=== PATIENT | female | born 1940 | race Hispanic/Latino ===

== ENCOUNTER 2019-08-11 15:30 | Outpatient (CLI) | payer MEDICARE, MEDICAID ==
--- NOTE | 2019-08-11 16:09 | ULT ---
Bilateral renal ultrasound CLINICAL INDICATION: Chronic kidney disease. COMPARISON: None FINDINGS: Right kidney: There is borderline renal cortical thinning. No renal mass, renal calculus or hydroneph rosis is seen on the right.The right kidney measures 9.1 cm x 4.2 cm. Left kidney: There is no evidence of renal cortical thinning on the left. Small anechoic structure me asuring 1.1 cm is seen in the medial aspect midportion left kidney which demonstrates sonographic characteristics most compatible with a small cyst. No hydronephrosis or renal calculus is appreciated .The left kidney measures 9 cm x 5.3 cm. Urinary bladder: Incompletely distended with urinary bladder volume of 48 mL. However, urinary bladde r has a grossly normal appearance for the degree of distention. Incidental imaging of the gallbladder while imaging of the right kidney demonstrates echogenic foci w ithin the gallbladder lumen with posterior shadowing most compatible with gallbladder calculi. IMPRESSION: 1. Borderline renal cortical thinning involving the right kidney. 2. Small left renal cyst. 3. No evidence of hydronephrosis. 4. Cholelithiasis.
== END 2019-08-11 15:31 | disposition home or self-care (01) ==
LOC: BICULT 15:30
PROVIDERS: ATTEND Internal Medicine Nephrology
DX: N18.3 Chronic kidney disease, stage 3 (moderate) (principal); N28.1 Cyst of kidney, acquired; K80.20 Calculus of gallbladder without cholecystitis without obstruction
CPT/HCPCS: 76770

== ENCOUNTER 2020-11-22 07:08 | Outpatient (CLI) | payer MEDICARE, MEDICAID | END 2020-11-22 07:09 | disposition home or self-care (01) | LOC: BICULT 07:08 | PROVIDERS: ATTEND Hospitalist | DX: E11.65 Type 2 diabetes mellitus with hyperglycemia (principal); R22.1 Localized swelling, mass and lump, neck; R01.1 Cardiac murmur, unspecified; N28.89 Other specified disorders of kidney and ureter | CPT/HCPCS: 76770; 93880; 93975 ==

== ENCOUNTER 2021-04-29 12:54 | Outpatient (CLI) | payer MEDICARE, MEDICAID ==
[~2021-04-29 12:54] MED LIST: Iopamidol-370 76% 500 ML 1 ML ONE
== END 2021-04-29 12:55 | disposition home or self-care (01) ==
LOC: BICCT 12:54
PROVIDERS: ATTEND Thoracic Surgery (Cardiothoracic Vascular Surgery)
DX: R22.1 Localized swelling, mass and lump, neck (principal); E07.89 Other specified disorders of thyroid; K11.8 Other diseases of salivary glands
CPT/HCPCS: 70498; 82565; Q9967

== ENCOUNTER 2021-06-25 13:52 | Outpatient (CLI) | payer MEDICARE, MEDICAID | END 2021-06-25 13:53 | disposition home or self-care (01) | LOC: BICULT 13:52 | PROVIDERS: ATTEND Specialist | DX: E04.1 Nontoxic single thyroid nodule (principal) | CPT/HCPCS: 76536 ==

== ENCOUNTER 2021-08-13 12:41 | Day surgery (SDC) | payer MEDICARE, MEDICAID ==
[2021-08-13] MEDS ORDERED: Sodium Bicarbonate 2.5 MEQ/5 ML VIAL ONE (12:48)
[2021-08-13] MEDS ORDERED: Lidocaine 1% PF 5 ML VIAL ONE (12:48)
[2021-08-13 14:06] VITALS: BP 163/76; TEMP 98.4
[2021-08-13] MEDS ORDERED: FLU VACC QS2021-22(65YR UP)/PF 240 MCG/0.7 ML SYRINGE IM ONE (14:30)
== END 2021-08-13 14:20 | disposition home or self-care (01) ==
LOC: ULT 12:41
PROVIDERS: ATTEND Specialist
PROC: 0G9H3ZX Drainage of Right Thyroid Gland Lobe, Percutaneous Approach, Diagnostic (ICD-10-PCS; principal; 2021-08-13)
DX: E04.1 Nontoxic single thyroid nodule (principal); Z23 Encounter for immunization; Z79.82 Long term (current) use of aspirin; Z79.84 Long term (current) use of oral hypoglycemic drugs; Z79.899 Other long term (current) drug therapy; Z88.0 Allergy status to penicillin
CPT/HCPCS: 10005; 90732; G0009; 88173; 90471; 90662; G0008

== ENCOUNTER 2023-05-11 04:44 | Inpatient (IN) | payer OTHER, MEDICAID ==
[2023-05-11 05:24] LABS: Actual Bicarbonate (HCO3v) 22.3 mEq/L (22-28); Base Excess -3.5 mEq/L (-2.0 to +3.0); Calcium, Ionized (venous) 1.07 mmol/L (1.16-1.32); Chloride (VBG) 104 mmol/L (98-106); Hematocrit-VBG 32 % (36.0-47.0); Hemoglobin (Hb) 10.9 g/dL (11.7-16.1); Potassium (VBG) 4.82 mmol/L (3.70-5.30); Sodium 139 mmol/L (133-146); pH (venous) 7.332 (7.32-7.43)
[2023-05-11 05:28] LABS: #Eosinphils 0.2 thou/uL (0.0-0.7); #Monocytes 0.7 thou/uL (0.11-0.59); #Neutrophils 6.4 thou/uL (1.40-6.50); %Basophils 0.3 % (0.0-1.0); %Monocytes 7.5 % (0.0-10.0); %Neutrophils 65.3 % (42.0-75.0); Hematocrit 32.2 % (36.0-47.0); Hemoglobin 9.7 g/dL (12.0-16.0); Mean Corpuscular HGB CONC 30.1 g/dL (32.0-36.0); Mean Corpuscular Hemoglobin 22.5 pg (27.0-31.0); Mean Corpuscular Volume 74.5 fl (78.0-98.0); Mean Platelet Volume 10.5 fL (7.4-10.4); Platelet Count 247 10x3/uL (130-400); RBC Distribution Width 19.3 % (11.5-14.5); Red Blood Cell (RBC) Count 4.32 mill/uL (4.20-5.40); White Blood Cell (WBC) Count 9.8 10x3/uL (4.8-10.8)
[2023-05-11] MEDS ORDERED: Furosemide 40 MG/4 ML VIAL ONE (05:32)
[2023-05-11 05:44] LABS: ALT (SGPT) 11 U/L (8-55); AST (SGOT) 13 U/L (5-34); Albumin 4.2 g/dL (3.4-4.8); Alkaline Phosphatase 175 U/L (40-110); Anion Gap 13 mmol/L (10-20); BUN (Urea Nitrogen) 32 mg/dL (9.8-20.1); Bilirubin, Total 0.2 mg/dL (0.2-1.2); Calc. Creatinine Clearance 0 mL/min (70-130); Calcium 8.7 mg/dL (7.8-10.44); Carbon Dioxide 24 mmol/L (23-31); Chloride 105 mmol/L (98-107); Estimated GFR 44; Globulin 3.6 g/dL (2.4-3.5); Glucose 232 mg/dL (83-110); Magnesium 1.7 mg/dL (1.6-2.6); Potassium 4.6 mmol/L (3.5-5.1); Protein, Total 7.8 g/dL (5.8-8.1); Sodium 137 mmol/L (136-145)
[2023-05-11] MEDS ORDERED: Nitroglycerin 2% Ointment 1 INCH/1 GM Packet ONE (05:49)
[2023-05-11 05:58] LABS: Troponin I Less than 0.010 ng/mL (< 0.028)
[2023-05-11] MEDS ORDERED: Acetaminophen 325 MG TAB PO PRN (07:00)
[2023-05-11] MEDS ORDERED: Ondansetron ODT 4 MG TAB SL PRN (07:00)
[2023-05-11] MEDS ORDERED: Ondansetron PF 4 MG/2 ML Vial IVP PRN (07:00)
[2023-05-11] MEDS ORDERED: Mag-Al 1200 mg/1200 mg/30 ML UDCUP ONE (07:25)
[2023-05-11] MEDS ORDERED: Benzonatate 100 MG CAP PO PRN (07:40)
[2023-05-11] MEDS ORDERED: Dextrose 5% in Water 1,000 ML IV PRN (07:45)
[2023-05-11] MEDS ORDERED: HumaLOG 300 UNITS/3 ML VIAL SC PRN (07:45)
[2023-05-11] MEDS ORDERED: Dextrose 50% Abboject 50 ML SYRINGE SLOW IVP PRN (07:45)
[2023-05-11] MEDS ORDERED: Glucagon 1 MG/ML KIT IM PRN (07:45)
[2023-05-11 08:00] VITALS: BMI 32.0
[2023-05-11 08:03] LABS: Hemoglobin A1c 9.4 % (4.0-6.0)
[2023-05-11 08:12] LABS: Bacteria/HPF Rare-Few HPF (None Seen); Bilirubin Negative (Negative); Blood, Urine 1+ (Negative); CAUTI Indications for Culture Dysuria,urgency,freq; Clarity Clear (Clear); Glucose, Urine (Dipstick) Greater than 1000 mg/dL (Negative); Ketone, Urine Negative (Negative); Leukocyte 75 Leu/uL (Negative); Nitrite Negative (Negative); Protein, Urine (Dipstick) Negative (Neg-Trace); RBC/HPF 0-3 HPF (0-3); Specific Gravity, Urine 1.008 (1.002-1.036); Squamous Epithelial None Seen HPF (0-3); Urobilinogen Normal mg/dL (Less than 2); WBC/HPF 0-3 HPF (0-3)
[2023-05-11 08:14] LABS: Urine Culture Reflex No No
[2023-05-11 08:28] LABS: Lactic Acid 3.3 mmol/L (0.5-2.2)
[2023-05-11] MEDS ORDERED: Alogliptin 6.25 MG TAB PO SCH (08:30)
[2023-05-11] MEDS ORDERED: metFORMIN 500 MG TAB PO SCH ×2 (08:30→17:00)
[2023-05-11] MEDS ORDERED: glipiZIDE XL 10 mg ER.TAB PO SCH ×2 (08:30→16:30)
[2023-05-11 08:36] LABS: Troponin I Less than 0.010 ng/mL (< 0.028)
[2023-05-11] MEDS ORDERED: Metoprolol Tartrate 25 MG TAB ONE (08:43)
[2023-05-11] MEDS ORDERED: Amlodipine 5 MG TAB ONE (08:43)
[2023-05-11] MEDS ORDERED: Aspirin Chewable 81 MG TAB ONE (08:44)
[2023-05-11] MEDS ORDERED: Pioglitazone HCl 45 MG TAB PO SCH (09:00)
[2023-05-11] MEDS ORDERED: Aspirin 81 mg Enteric Coated Tablet PO SCH (09:00)
[2023-05-11] MEDS ORDERED: Amlodipine 5 MG TAB PO SCH (09:00)
[2023-05-11] MEDS ORDERED: Empagliflozin 25 MG TAB PO SCH (09:00)
[2023-05-11] MEDS ORDERED: Metoprolol Tartrate 25 MG TAB PO SCH (09:00)
[2023-05-11 14:36] LABS: Troponin I Less than 0.010 ng/mL (< 0.028)
[2023-05-11 16:01] VITALS: BP 133/83; TEMP 98.6
[2023-05-12] MEDS ORDERED: Levothyroxine Sodium 100 MCG TAB PO SCH (06:00)
[2023-05-12] MEDS ORDERED: Alogliptin 6.25 MG TAB PO SCH (07:30)
[2023-05-12] MEDS ORDERED: Furosemide 20 MG/2 ML VIAL SLOW IVP SCH (09:00)
== END 2023-05-11 16:37 | disposition home or self-care (01) | DRG 291 ==
LOC: ERS 04:44 → ERHOLD 06:46
PROVIDERS: ADMIT Family Medicine; ATTEND Family Medicine
DX: I11.0 Hypertensive heart disease with heart failure (principal); I50.31 Acute diastolic (congestive) heart failure; E03.9 Hypothyroidism, unspecified; E11.65 Type 2 diabetes mellitus with hyperglycemia; E78.5 Hyperlipidemia, unspecified; M19.90 Unspecified osteoarthritis, unspecified site; Z88.0 Allergy status to penicillin; Z79.899 Other long term (current) drug therapy; Z79.82 Long term (current) use of aspirin; Z79.84 Long term (current) use of oral hypoglycemic drugs; Z98.890 Other specified postprocedural states; Z79.890 Hormone replacement therapy
CPT/HCPCS: 36415; 71045; 80053; 81001; 82010; 82805; 83036; 83605; 83735; 83880; 84443; 84484; 85025; 93005; 96374; J1650; J1940

== ENCOUNTER 2023-06-05 05:44 | Inpatient (IN) | payer OTHER ==
[2023-06-05 06:12] LABS: Hematocrit 34.4 % (36.0-47.0); Hemoglobin 10.6 g/dL (12.0-16.0); Mean Corpuscular HGB CONC 30.8 g/dL (32.0-36.0); Mean Corpuscular Hemoglobin 23.3 pg (27.0-31.0); Mean Corpuscular Volume 75.6 fl (78.0-98.0); Mean Platelet Volume 10.3 fL (7.4-10.4); Platelet Count 270 10x3/uL (130-400); RBC Distribution Width 23.7 % (11.5-14.5); Red Blood Cell (RBC) Count 4.55 mill/uL (4.20-5.40)
[2023-06-05 06:15] LABS: Delete Auto Diff?? YES; Manual Diff?? YES
[2023-06-05] MEDS ORDERED: Cefepime 2 GM VIAL ONE (06:17)
[2023-06-05 06:26] LABS: ALT (SGPT) 11 U/L (8-55); AST (SGOT) 12 U/L (5-34); Albumin 3.5 g/dL (3.4-4.8); Alkaline Phosphatase 125 U/L (40-110); Anion Gap 20 mmol/L (10-20); BUN (Urea Nitrogen) 55 mg/dL (9.8-20.1); Bilirubin, Total 0.5 mg/dL (0.2-1.2); Calc. Creatinine Clearance 0 mL/min (70-130); Calcium 8.4 mg/dL (7.8-10.44); Carbon Dioxide 17 mmol/L (23-31); Chloride 99 mmol/L (98-107); Estimated GFR 18; Globulin 4.1 g/dL (2.4-3.5); Lipase 56 U/L (8-78); Potassium 4.8 mmol/L (3.5-5.1); Protein, Total 7.6 g/dL (5.8-8.1); Sodium 131 mmol/L (136-145)
[2023-06-05 06:29] LABS: Glucose 702 mg/dL (83-110); Troponin I Less than 0.010 ng/mL (< 0.028)
[2023-06-05 06:40] LABS: Anisocytosis MODERATE=16-30 cells HPF (0-5); Band 39 % (5-11); CellaVision Operator ID lab.sh2; Hypochromia SLIGHT = 6-15 cells HPF (0-5); Lymphocytes 3 % (21-51); Metamyelocyte 2 % (0-0); Microcytosis SLIGHT = 6-15 cells HPF (0-5); Monocytes 2 % (0-10); Neutrophil 55 % (42-75); Ovalocytes SLIGHT = 2-5 cells HPF (0-1); Platelet Adequacy Comment Platelets Normal; Polychromasia MODERATE = 3-4 cells HPF (0-2); Smudge Cells 2.8 %; Tear Drops SLIGHT = 2-5 cells HPF (0-1); Total Cell Count 108
[2023-06-05 06:52] LABS: Bacteria/HPF 4+ HPF (None Seen); Bilirubin Negative (Negative); Blood, Urine 3+ (Negative); CAUTI Indications for Culture Fever or rigors; Clarity Extra Turbid (Clear); Glucose, Urine (Dipstick) Greater than 1000 mg/dL (Negative); Ketone, Urine Negative (Negative); Leukocyte 500 Leu/uL (Negative); Nitrite Negative (Negative); Protein, Urine (Dipstick) 10 mg/dL (Neg-Trace); Specific Gravity, Urine 1.019 (1.002-1.036); Urine Culture Reflex Yes Yes; Urobilinogen Normal mg/dL (Less than 2); WBC/HPF 21-50 HPF (0-3)
[2023-06-05] MEDS ORDERED: Sodium Chloride 0.9% 100 ML ONE (07:05)
[2023-06-05] MEDS ORDERED: Vancomycin 1 GM/200 ML (FROZEN) BAG ONE (07:48)
[2023-06-05 07:55] LABS: Actual Bicarbonate (HCO3v) 17.3 mEq/L (22-28); Base Excess -9.2 mEq/L (-2.0 to +3.0); Calcium, Ionized (venous) 1.04 mmol/L (1.16-1.32); Chloride (VBG) 102 mmol/L (98-106); Hematocrit-VBG 35 % (36.0-47.0); Potassium (VBG) 5.15 mmol/L (3.70-5.30); Sodium 137 mmol/L (133-146); pH (venous) 7.255 (7.32-7.43)
[2023-06-05] MEDS ORDERED: Insulin Glargine 30 UNITS/0.3 ML VIAL SC SCH (08:15)
[2023-06-05] MEDS ORDERED: SODIUM CHLORIDE 0.9% IVPB SCH (08:30)
[2023-06-05] MEDS ORDERED: HUMULIN R IVPB SCH (08:30)
[2023-06-05] MEDS ORDERED: Glucagon 1 MG/ML KIT IM PRN (08:39)
[2023-06-05] MEDS ORDERED: Dextrose 50% Abboject 50 ML SYRINGE SLOW IVP PRN (08:39)
[2023-06-05] MEDS ORDERED: Dextrose 5% in Water 1,000 ML IV PRN (08:39)
[2023-06-05] MEDS ORDERED: Insulin Regular 300 UNITS/3 ML VIAL IVP SCH ×3 (09:00→15:37)
[2023-06-05 09:03] LABS: Lactic Acid 3.3 mmol/L (0.5-2.2)
[2023-06-05] MEDS ORDERED: Sodium Chloride 0.9% 500 ML IV SCH ×2 (10:00→14:00)
[2023-06-05] MEDS ORDERED: FLU VACC QS2023(65UP)/MF59C/PF 60 MCG/0.5 ML SYRINGE IM ONE (10:00)
[2023-06-05 10:09] VITALS: BMI 30.9
[2023-06-05 11:00] LABS: ALT (SGPT) 13 U/L (8-55); AST (SGOT) 15 U/L (5-34); Albumin 3.1 g/dL (3.4-4.8); Alkaline Phosphatase 102 U/L (40-110); Anion Gap 19 mmol/L (10-20); BUN (Urea Nitrogen) 50 mg/dL (9.8-20.1); Bilirubin, Total 0.4 mg/dL (0.2-1.2); Calc. Creatinine Clearance 22 mL/min (70-130); Calcium 8.1 mg/dL (7.8-10.44); Carbon Dioxide 16 mmol/L (23-31); Chloride 104 mmol/L (98-107); Estimated GFR 21; Globulin 3.9 g/dL (2.4-3.5); Potassium 4.1 mmol/L (3.5-5.1); Sodium 135 mmol/L (136-145)
[2023-06-05 11:08] LABS: Glucose 540 mg/dL (83-110)
[2023-06-05] MEDS ORDERED: Vancomycin HCl 250 MG in Sodium Chloride 0.9% 100 ML IV SCH (15:45)
[2023-06-05] MEDS ORDERED: Vancomycin Dose by Levels Sliding Scale (Wt 71-99) FS SCH (15:45)
[2023-06-05] MEDS ORDERED: HumaLOG 300 UNITS/3 ML VIAL SC PRN (16:15)
[2023-06-05 16:53] LABS: ALT (SGPT) 13 U/L (8-55); AST (SGOT) 21 U/L (5-34); Albumin 2.9 g/dL (3.4-4.8); Alkaline Phosphatase 82 U/L (40-110); Anion Gap 16 mmol/L (10-20); BUN (Urea Nitrogen) 45 mg/dL (9.8-20.1); Bilirubin, Total 0.4 mg/dL (0.2-1.2); Calc. Creatinine Clearance 26 mL/min (70-130); Calcium 7.9 mg/dL (7.8-10.44); Carbon Dioxide 15 mmol/L (23-31); Chloride 111 mmol/L (98-107); Estimated GFR 25; Globulin 3.4 g/dL (2.4-3.5); Glucose 324 mg/dL (83-110); Potassium 3.6 mmol/L (3.5-5.1); Protein, Total 6.3 g/dL (5.8-8.1); Sodium 138 mmol/L (136-145)
[2023-06-05 18:18] LABS: Lactic Acid 1.8 mmol/L (0.5-2.2)
[2023-06-05] MEDS ORDERED: Acetaminophen 325 MG TAB PO SCH (19:45)
[2023-06-05] MEDS ORDERED: Albumin 25% 25 GM/100 ML BOT IVPB SCH ×2 (20:00→21:15)
[2023-06-05] MEDS: Lactated Ringer's 1,000 ML IV SCH (20:05)
[2023-06-05] MEDS ORDERED: Vancomycin 1 GM in Sodium Chloride 0.9% 250 ML 250 ML IVPB SCH (21:00)
[2023-06-05 21:15] LABS: Anion Gap 15 mmol/L (10-20); BUN (Urea Nitrogen) 45 mg/dL (9.8-20.1); Calc. Creatinine Clearance 28 mL/min (70-130); Calcium 7.9 mg/dL (7.8-10.44); Carbon Dioxide 17 mmol/L (23-31); Chloride 111 mmol/L (98-107); Estimated GFR 28; Glucose 266 mg/dL (83-110); Magnesium 1.4 mg/dL (1.6-2.6); Potassium 3.5 mmol/L (3.5-5.1); Sodium 139 mmol/L (136-145)
[2023-06-05] MEDS ORDERED: Lactated Ringer's 500 ML IV SCH (21:30)
[2023-06-05] MEDS ORDERED: Midodrine HCl 5 MG TAB PO SCH (22:30)
[2023-06-05 22:58] LABS: Legionella Urinary Ag Negative (Negative); Strep pneumo Urine Ag POSITIVE (NEGATIVE)
[2023-06-06] MEDS ORDERED: Magnesium 2 GM/50 ML(in water) 2 GM in Premix 1 BAG IVPB SCH (00:30)
[2023-06-06] MEDS: Albumin 25% 25 GM/100 ML BOT IVPB SCH ×3 (01:44→15:54)
[2023-06-06 04:14] LABS: Hemoglobin 8.7 g/dL (12.0-16.0); Mean Corpuscular Hemoglobin 23.3 pg (27.0-31.0); Mean Corpuscular Volume 77.5 fl (78.0-98.0); Mean Platelet Volume 11.3 fL (7.4-10.4); Platelet Count 183 10x3/uL (130-400); RBC Distribution Width 24.1 % (11.5-14.5); Red Blood Cell (RBC) Count 3.74 mill/uL (4.20-5.40); White Blood Cell (WBC) Count 8.8 10x3/uL (4.8-10.8)
[2023-06-06 04:16] LABS: Delete Auto Diff?? YES; Manual Diff?? YES
[2023-06-06 04:57] LABS: AST (SGOT) 26 U/L (5-34); Albumin 3.3 g/dL (3.4-4.8); Alkaline Phosphatase 68 U/L (40-110); Anion Gap 15 mmol/L (10-20); BUN (Urea Nitrogen) 41 mg/dL (9.8-20.1); Bilirubin, Total 0.4 mg/dL (0.2-1.2); Calc. Creatinine Clearance 29 mL/min (70-130); Calcium 8.2 mg/dL (7.8-10.44); Carbon Dioxide 17 mmol/L (23-31); Chloride 112 mmol/L (98-107); Estimated GFR 29; Globulin 2.9 g/dL (2.4-3.5); Glucose 242 mg/dL (83-110); Potassium 3.2 mmol/L (3.5-5.1); Protein, Total 6.2 g/dL (5.8-8.1); Sodium 141 mmol/L (136-145)
[2023-06-06 04:58] LABS: ALT (SGPT) 13 U/L (8-55)
[2023-06-06 05:06] LABS: Band 63 % (5-11); CellaVision Operator ID LAB.CLH1; Elliptocytes SLIGHT = 2-5 cells HPF (0-1); Hypochromia SLIGHT = 6-15 cells HPF (0-5); Lymphocytes 2 % (21-51); Metamyelocyte 8 % (0-0); Microcytosis SLIGHT = 6-15 cells HPF (0-5); Monocytes 6 % (0-10); Neutrophil 20 % (42-75); Platelet Adequacy Comment Platelets Normal; Polychromasia MODERATE = 3-4 cells HPF (0-2); Total Cell Count 109
[2023-06-06] MEDS ORDERED: Electrolyte Replacement Protocol 1 EACH FS PRN (05:22)
[2023-06-06 05:35] LABS: Magnesium 2.1 mg/dL (1.6-2.6)
[2023-06-06] MEDS ORDERED: Potassium Chloride 20 MEQ TAB PO SCH (05:45)
[2023-06-06] MEDS: Cefepime 1 GM in Sodium Chloride 0.9% 100 ML IVPB SCH (09:17)
[2023-06-06] MEDS: Lactated Ringer's 1,000 ML IV SCH (09:19)
[2023-06-06] MEDS ORDERED: Insulin Glargine 30 UNITS/0.3 ML VIAL SC SCH (09:33)
[2023-06-06] MEDS ORDERED: Loperamide HCl 2 MG CAP PO SCH (21:00)
[2023-06-06] MEDS: Acetaminophen 325 MG TAB PO PRN (21:28)
[2023-06-06 21:38] LABS: Campy jejuni + coli by PCR Negative (Negative); STEC Shiga Toxin 1+2 Negative (Negative); Salmonella spp. by PCR POSITIVE (Negative); Shigella spp + EIEC by PCR Negative (Negative)
[2023-06-07] MEDS: Lactated Ringer's 1,000 ML IV SCH ×3 (04:17→21:15)
[2023-06-07 04:50] LABS: Hematocrit 27.4 % (36.0-47.0); Hemoglobin 8.3 g/dL (12.0-16.0); Mean Corpuscular HGB CONC 30.3 g/dL (32.0-36.0); Mean Corpuscular Hemoglobin 23.4 pg (27.0-31.0); Mean Corpuscular Volume 77.2 fl (78.0-98.0); Platelet Count 110 10x3/uL (130-400); RBC Distribution Width 25.2 % (11.5-14.5); Red Blood Cell (RBC) Count 3.55 mill/uL (4.20-5.40); White Blood Cell (WBC) Count 8.3 10x3/uL (4.8-10.8)
[2023-06-07 04:56] LABS: Delete Auto Diff?? YES; Manual Diff?? YES
[2023-06-07 05:15] LABS: ALT (SGPT) 17 U/L (8-55); AST (SGOT) 29 U/L (5-34); Albumin 3.4 g/dL (3.4-4.8); Alkaline Phosphatase 58 U/L (40-110); Anion Gap 14 mmol/L (10-20); BUN (Urea Nitrogen) 30 mg/dL (9.8-20.1); Bilirubin, Total 0.4 mg/dL (0.2-1.2); Calc. Creatinine Clearance 41 mL/min (70-130); Calcium 8.4 mg/dL (7.8-10.44); Carbon Dioxide 18 mmol/L (23-31); Chloride 113 mmol/L (98-107); Estimated GFR 44; Globulin 2.8 g/dL (2.4-3.5); Glucose 185 mg/dL (83-110); Potassium 3.1 mmol/L (3.5-5.1); Protein, Total 6.2 g/dL (5.8-8.1); Sodium 142 mmol/L (136-145)
[2023-06-07 05:50] LABS: Anisocytosis MODERATE=16-30 cells HPF (0-5); Band 27 % (5-11); Burr Cells SLIGHT = 2-5 cells HPF (0-1); CellaVision Operator ID lab.sh2; Hypochromia SLIGHT = 6-15 cells HPF (0-5); Large Platelets 4.7 % (0-5); Lymphocytes 18 % (21-51); Macrocytosis SLIGHT = 6-15 cells HPF (0-5); Microcytosis SLIGHT = 6-15 cells HPF (0-5); Monocytes 1 % (0-10); Neutrophil 53 % (42-75); Ovalocytes SLIGHT = 2-5 cells HPF (0-1); Platelet Adequacy Comment Platelets Decreased; Poikilocytosis SLIGHT = 6-15 cells HPF (0-5); Polychromasia SLIGHT = 2-3 cells HPF (0-2); Target Cells SLIGHT = 2-5 cells HPF (0-1); Total Cell Count 106; Vacuoles MODERATE
[2023-06-07] MEDS ORDERED: Calcium Carbonate 500 MG ChewTAB PO PRN (06:55)
[2023-06-07] MEDS ORDERED: Ondansetron ORAL SOLN. 4 MG/5 ML UDCUP PO PRN (06:58)
[2023-06-07] MEDS ORDERED: Potassium Chloride 20 MEQ TAB PO SCH (08:00)
[2023-06-07] MEDS: Cefepime 1 GM in Sodium Chloride 0.9% 100 ML IVPB SCH (08:04)
[2023-06-07] MEDS: Famotidine 20 MG TAB PO SCH ×2 (08:04→21:14)
[2023-06-07] MEDS: Ondansetron ODT 4 MG TAB PO PRN ×3 (08:06→21:13)
[2023-06-07] MEDS: Insulin Glargine 30 UNITS/0.3 ML VIAL SC SCH (08:10)
[2023-06-07] MEDS ORDERED: Insulin Glargine 30 UNITS/0.3 ML VIAL SC SCH (09:00)
[2023-06-07] MEDS: Loperamide HCl 2 MG CAP PO PRN ×2 (15:26→21:14)
[2023-06-07] MEDS: Acetaminophen 325 MG TAB PO PRN (23:33)
[2023-06-08] MEDS: HumaLOG 300 UNITS/3 ML VIAL SC PRN (05:03)
[2023-06-08] MEDS: Ondansetron ODT 4 MG TAB PO PRN ×2 (05:03→08:28)
[2023-06-08 07:16] LABS: Hematocrit 28.5 % (36.0-47.0); Hemoglobin 8.9 g/dL (12.0-16.0); Mean Corpuscular HGB CONC 31.2 g/dL (32.0-36.0); Mean Corpuscular Hemoglobin 23.5 pg (27.0-31.0); Mean Corpuscular Volume 75.2 fl (78.0-98.0); Platelet Count 131 10x3/uL (130-400); RBC Distribution Width 25.5 % (11.5-14.5); Red Blood Cell (RBC) Count 3.79 mill/uL (4.20-5.40)
[2023-06-08 07:25] LABS: Manual Diff?? YES
[2023-06-08 07:26] LABS: Delete Auto Diff?? YES
[2023-06-08 07:38] LABS: ALT (SGPT) 13 U/L (8-55); AST (SGOT) 24 U/L (5-34); Albumin 3.1 g/dL (3.4-4.8); Alkaline Phosphatase 68 U/L (40-110); Anion Gap 13 mmol/L (10-20); BUN (Urea Nitrogen) 25 mg/dL (9.8-20.1); Bilirubin, Total 0.5 mg/dL (0.2-1.2); Calc. Creatinine Clearance 52 mL/min (70-130); Calcium 8.4 mg/dL (7.8-10.44); Carbon Dioxide 21 mmol/L (23-31); Chloride 111 mmol/L (98-107); Estimated GFR 57; Globulin 2.8 g/dL (2.4-3.5); Glucose 154 mg/dL (83-110); Potassium 3.4 mmol/L (3.5-5.1); Protein, Total 5.9 g/dL (5.8-8.1); Sodium 142 mmol/L (136-145)
[2023-06-08] MEDS ORDERED: Potassium Chloride 20 MEQ TAB PO SCH (08:00)
[2023-06-08 08:22] LABS: Anisocytosis SLIGHT = 6-15 cells HPF (0-5); Band 21 % (5-11); CellaVision Operator ID LAB.GE; Hypochromia SLIGHT = 6-15 cells HPF (0-5); Lymphocytes 8 % (21-51); Monocytes 6 % (0-10); Neutrophil 64 % (42-75); Platelet Adequacy Comment Platelets Normal; Polychromasia SLIGHT = 2-3 cells HPF (0-2); Total Cell Count 101
[2023-06-08] MEDS: Famotidine 20 MG TAB PO SCH (08:24)
[2023-06-08] MEDS: cefTRIAXone\\ROCEPHIN 2 GM in Sodium Chloride 0.9% 100 ML IVPB SCH (08:24)
[2023-06-08] MEDS: Insulin Glargine 30 UNITS/0.3 ML VIAL SC SCH ×2 (08:25→10:58)
[2023-06-08] MEDS ORDERED: Insulin Glargine 30 UNITS/0.3 ML VIAL SC SCH (09:05)
[2023-06-08] MEDS ORDERED: Fluconazole 100 MG TAB PO SCH (09:15)
[2023-06-08] MEDS: Lactated Ringer's 1,000 ML IV SCH (20:35)
[2023-06-08] MEDS: Nystatin Cream 15 GM TUBE TOP SCH (20:35)
[2023-06-08] MEDS: Ondansetron PF 4 MG/2 ML Vial IVP PRN (22:15)
[2023-06-09 06:55] LABS: Hematocrit 29.9 % (36.0-47.0); Hemoglobin 9.4 g/dL (12.0-16.0); Mean Corpuscular HGB CONC 31.4 g/dL (32.0-36.0); Mean Corpuscular Hemoglobin 23.9 pg (27.0-31.0); Mean Corpuscular Volume 75.9 fl (78.0-98.0); Platelet Count 121 10x3/uL (130-400); RBC Distribution Width 25.3 % (11.5-14.5); Red Blood Cell (RBC) Count 3.94 mill/uL (4.20-5.40); White Blood Cell (WBC) Count 5.4 10x3/uL (4.8-10.8)
[2023-06-09 07:10] LABS: Delete Auto Diff?? YES; Manual Diff?? YES
[2023-06-09 07:22] LABS: ALT (SGPT) 12 U/L (8-55); AST (SGOT) 18 U/L (5-34); Albumin 3.1 g/dL (3.4-4.8); Alkaline Phosphatase 60 U/L (40-110); Anion Gap 14 mmol/L (10-20); BUN (Urea Nitrogen) 19 mg/dL (9.8-20.1); Bilirubin, Total 0.5 mg/dL (0.2-1.2); Calc. Creatinine Clearance 61 mL/min (70-130); Calcium 8.1 mg/dL (7.8-10.44); Carbon Dioxide 24 mmol/L (23-31); Chloride 107 mmol/L (98-107); Estimated GFR 70; Glucose 138 mg/dL (83-110); Potassium 3.5 mmol/L (3.5-5.1); Protein, Total 6.1 g/dL (5.8-8.1); Sodium 141 mmol/L (136-145)
[2023-06-09 08:10] LABS: Band 14 % (5-11); CellaVision Operator ID LAB.GE; Hypochromia SLIGHT = 6-15 cells HPF (0-5); Large Platelets 5.8 % (0-5); Lymphocytes 14 % (21-51); Metamyelocyte 4 % (0-0); Microcytosis SLIGHT = 6-15 cells HPF (0-5); Monocytes 10 % (0-10); Myelocyte 1 % (0-0); Neutrophil 55 % (42-75); Platelet Adequacy Comment Platelets Decreased; Poikilocytosis SLIGHT = 6-15 cells HPF (0-5); Polychromasia SLIGHT = 2-3 cells HPF (0-2); Reactive Lymphocytes 2 % (0-10); Target Cells SLIGHT = 2-5 cells HPF (0-1); Total Cell Count 103
[2023-06-09] MEDS: cefTRIAXone\\ROCEPHIN 2 GM in Sodium Chloride 0.9% 100 ML IVPB SCH (08:18)
[2023-06-09] MEDS: Nystatin Cream 15 GM TUBE TOP SCH ×2 (08:20→20:35)
[2023-06-09] MEDS: Insulin Glargine 30 UNITS/0.3 ML VIAL SC SCH (08:20)
[2023-06-09] MEDS: Ondansetron PF 4 MG/2 ML Vial IVP PRN (08:23)
[2023-06-09] MEDS ORDERED: Polyethylene Glycol 3350 17 GM Packet PO SCH (09:00)
[2023-06-09] MEDS: Lactated Ringer's 1,000 ML IV SCH (09:01)
[2023-06-09] MEDS ORDERED: Potassium Chloride 20 MEQ TAB PO SCH (09:30)
[2023-06-09] MEDS: HumaLOG 300 UNITS/3 ML VIAL SC PRN (16:55)
[2023-06-10 06:43] LABS: ALT (SGPT) 13 U/L (8-55); AST (SGOT) 21 U/L (5-34); Albumin 2.9 g/dL (3.4-4.8); Alkaline Phosphatase 63 U/L (40-110); Anion Gap 12 mmol/L (10-20); BUN (Urea Nitrogen) 15 mg/dL (9.8-20.1); Bilirubin, Total 0.5 mg/dL (0.2-1.2); Calc. Creatinine Clearance 68 mL/min (70-130); Calcium 7.7 mg/dL (7.8-10.44); Carbon Dioxide 24 mmol/L (23-31); Chloride 104 mmol/L (98-107); Estimated GFR 79; Globulin 2.9 g/dL (2.4-3.5); Glucose 123 mg/dL (83-110); Potassium 3.4 mmol/L (3.5-5.1); Protein, Total 5.8 g/dL (5.8-8.1); Sodium 137 mmol/L (136-145)
[2023-06-10] MEDS ORDERED: Potassium Chloride 20 MEQ TAB PO SCH (08:00)
[2023-06-10] MEDS: cefTRIAXone\\ROCEPHIN 2 GM in Sodium Chloride 0.9% 100 ML IVPB SCH (08:14)
[2023-06-10] MEDS: Insulin Glargine 30 UNITS/0.3 ML VIAL SC SCH (08:15)
[2023-06-10] MEDS: Nystatin Cream 15 GM TUBE TOP SCH (08:16)
[2023-06-10] MEDS ORDERED: Amlodipine 5 MG TAB PO SCH (10:00)
[2023-06-10 11:01] VITALS: BP 145/81
[2023-06-10 12:11] VITALS: TEMP 97.6
[2023-06-11] MEDS ORDERED: Amlodipine 5 MG TAB PO SCH (09:00)
== END 2023-06-10 15:48 | disposition home or self-care (01) | DRG 871 ==
LOC: ERS 05:44 → IMCU/EMU 09:11 → T4-A 06-07 15:13
PROVIDERS: ADMIT Student in an Organized Health Care Education/Training Program; ATTEND Student in an Organized Health Care Education/Training Program
PROC: 4A043R1 Measurement of Venous Saturation, Peripheral, Percutaneous Approach (ICD-10-PCS; principal; 2023-06-05)
PROC: 3E03329 Introduction of Other Anti-infective into Peripheral Vein, Percutaneous Approach (ICD-10-PCS; 2023-06-05)
PROC: 30233J1 Transfusion of Nonautologous Serum Albumin into Peripheral Vein, Percutaneous Approach (ICD-10-PCS; 2023-06-05)
DX: A02.1 Salmonella sepsis (principal); E11.10 Type 2 diabetes mellitus with ketoacidosis without coma; I50.33 Acute on chronic diastolic (congestive) heart failure; J15.4 Pneumonia due to other streptococci; N17.9 Acute kidney failure, unspecified; I13.0 Hypertensive heart and chronic kidney disease with heart failure and stage 1 through stage 4 chronic kidney disease, or unspecified chronic kidney disease; N39.0 Urinary tract infection, site not specified; A02.0 Salmonella enteritis; E03.9 Hypothyroidism, unspecified; R53.1 Weakness; E11.22 Type 2 diabetes mellitus with diabetic chronic kidney disease; N18.30 Chronic kidney disease, stage 3 unspecified; R65.20 Severe sepsis without septic shock; E66.9 Obesity, unspecified; E87.6 Hypokalemia; B37.31 Acute candidiasis of vulva and vagina; M19.90 Unspecified osteoarthritis, unspecified site; K21.9 Gastro-esophageal reflux disease without esophagitis; Z88.0 Allergy status to penicillin; Z79.899 Other long term (current) drug therapy; Z98.49 Cataract extraction status, unspecified eye; Z68.31 Body mass index [BMI] 31.0-31.9, adult; Z98.890 Other specified postprocedural states
CPT/HCPCS: 36415; 36416; 71045; 74176; 80053; 81001; 82010; 82274; 82805; 83605; 83690; 83735; 83880; 84145; 84484; 85025; 87040; 87077; 87081; 87086; 87149; 87186; 87324; 87449; 87505; 87899; 93005; 93010; 96361; 96365; J0692; J0696; J1815; J2405; J3370; J3370-JW; J3475; J3490; J7030; J7120; P9047; Q0162

== ENCOUNTER 2024-07-29 18:11 | Emergency (ER) | payer OTHER ==
[2024-07-29 19:14] LABS: #Basophils 0.04 10x3/uL (0.0-0.2); %Basophils 0.6 % (0.0-1.0); %Eosinophils 0.6 % (0.0-10.0); %Lymphocytes 21.1 % (21.0-51.0); %Monocytes 7.6 % (0.0-10.0); %Neutrophils 67.6 % (42.0-75.0); Hematocrit 37.1 % (36.0-47.0); Hemoglobin 12.2 g/dL (12.0-16.0); Mean Corpuscular HGB CONC 32.9 g/dL (32.0-36.0); Mean Corpuscular Hemoglobin 29.5 pg (27.0-31.0); Mean Corpuscular Volume 89.8 fL (78.0-98.0); Platelet Count 179 10x3/uL (130-400); RBC Distribution Width 15.1 % (11.5-14.5); Red Blood Cell (RBC) Count 4.13 mill/uL (4.20-5.40)
[2024-07-29 19:36] LABS: Troponin I Less than 0.010 ng/mL (< 0.028)
[2024-07-29 19:53] LABS: ALT (SGPT) 16 U/L (8-55); AST (SGOT) 16 U/L (5-34); Albumin 3.6 g/dL (3.4-4.8); Alkaline Phosphatase 94 U/L (40-110); Anion Gap 18 mmol/L (10-20); BUN (Urea Nitrogen) 40 mg/dL (9.8-20.1); Bilirubin, Total 0.5 mg/dL (0.2-1.2); Calc. Creatinine Clearance 0 mL/min (70-130); Calcium 8.7 mg/dL (7.8-10.44); Carbon Dioxide 22 mmol/L (23-31); Chloride 104 mmol/L (98-107); Estimated GFR 33; Globulin 3.9 g/dL (2.4-3.5); Glucose 215 mg/dL (83-110); Potassium 5.4 mmol/L (3.5-5.1); Protein, Total 7.5 g/dL (5.8-8.1); Sodium 139 mmol/L (136-145)
== END 2024-07-29 22:15 | disposition home or self-care (01) ==
LOC: ERS 18:11
DX: I95.1 Orthostatic hypotension (principal); E11.9 Type 2 diabetes mellitus without complications; I10 Essential (primary) hypertension; E03.9 Hypothyroidism, unspecified; Z79.890 Hormone replacement therapy; Z79.899 Other long term (current) drug therapy; Z79.84 Long term (current) use of oral hypoglycemic drugs
CPT/HCPCS: 36415; 80053; 83880; 84484; 85025; 93005; 99285